=== PATIENT | female | born 1960 | race Caucasian/White ===

== ENCOUNTER 2016-05-13 08:18 | Inpatient (IN) | payer BC, OTHER ==
[2016-05-12 10:47] VITALS: BMI 25.0
[2016-05-13] VITALS (9 sets, daily range): BP systolic 97–130; BP diastolic 60–77; PULSE 63–75; TEMP 36.2–36.8; O2SAT 96–99; Ht 162.6 cm; Wt 68.2 kg
[~2016-05-13] VITALS: Ht 162.6 cm; Wt 68.2 kg
[~2016-05-13 08:18] MED LIST: CALC-393 PO; CEFAZOLIN 2000 MG/60 ML D5W IV SCH; CeleBREX 200 MG CAP PO ONE; LACTATED RINGER'S 1000ML IV SCH; MULT-506 PO; PREGABALIN 75 MG CAP PO ONE; SCOPOLAMINE 1.5 MG TDSY TD SCH
[2016-05-13] MEDS ORDERED: CeleBREX 200 MG CAP ONE (08:40)
[2016-05-13] MEDS ORDERED: PREGABALIN 75 MG CAP ONE (08:41)
[2016-05-13] MEDS ORDERED: FENTANYL CITRATE INJ 50 MCG/1 ML 2 ML VIAL ONE ×2 (09:44→12:34)
[2016-05-13] MEDS ORDERED: MIDAZOLAM HCL 1 MG/ML 2ML VIAL ONE (09:44)
[2016-05-13 09:50] LABS: PREG INTERNAL NEGATIVE QC NEG CLEAR BACKGROUND; PREG INTERNAL POSITIVE QC POS CONTROL LINE
--- NOTE | 2016-05-13 09:58 | History and Physical ---
History & Physical Date May 13, 2016. Chief Complaint LBP and R leg pain History of Present Illness The patient is a 55 year old female with complaints of above with radiation to anterior thigh. Pain is severe and debilitating despite oral narcotics. She has a hx of L2-5 PSF that was successful until a reherniation occurred 4-6 weeks ago. MRI demonstrates R L1-2 foraminal HNP. she reports weakness in hip on R and numbness. no left leg symptoms. Past Medical/Surgical History OA spinal fusion Additional History Hepatic Disease: No Endocrine Disorder: No Kidney Disease: No Hypertension: No Heart Disease: No Bleeding Tendencies: No Infectious Diseases: No Allergies Coded Allergies: No Known Allergies (Unverified , 05/13/16) Home Medications Scheduled Calcium Carbonate (Calcium), 600 MG PO QAM Multivitamin (Multivitamin), 1 TAB PO QAM Physical Examination Skin: warm/dry Eyes: normal inspection, sclerae normal ENT: normal ENT inspection Head: normocephalic, atraumatic Neck: supple, trachea midline Respiratory/Chest: lungs clear, no respiratory distress Cardiovascular: regular rate, rhythm Back: normal inspection (midline scar) Extremities: normal inspection, normal range of motion Neurologic/Psych: alert, normal reflexes, oriented x 3 Addiitonal Comments: weakness in hip flexors on right, numbness anterior thigh Diagnosis R L1-2 foraminal HNP adjacent to prior fusion Plan of Treatment L1-2 discectomy and extension of fusion to L1, possible T12, possible HWR L2-5.
[2016-05-13] MEDS ORDERED: HYDROmorphone INJ 2 MG/ML SYR/VIAL ONE (10:56)
[2016-05-13] MEDS ORDERED: PROMETHAZINE HCL INJ 6.25 MG in SODIUM CHLORIDE 0.9% 50ML 50 ML IV PRN (11:00)
[2016-05-13] MEDS ORDERED: HYDROmorphone INJ 1 MG/ML SYR IV PRN ×2 (11:00→12:30)
[2016-05-13] MEDS ORDERED: ATROPINE SULFATE 0.1 MG/ML 5ML SYR IV PRN (11:00)
[2016-05-13] MEDS ORDERED: FENTANYL CITRATE INJ 50 MCG/1 ML 2 ML VIAL IV PRN (11:00)
[2016-05-13] MEDS ORDERED: ONDANSETRON INJ 2 MG/ML 2 ML VIAL IV PRN ×2 (11:00→12:30)
[2016-05-13] MEDS ORDERED: EpHEDrine SULFATE INJ 50 MG/ML AMP IV PRN (11:00)
[2016-05-13] MEDS ORDERED: BUPIVACAINE/EPINEPHRINE 0.5% MPF 1:200,000 30 ML VIAL INJ ONE (11:09)
[2016-05-13] MEDS ORDERED: LIDOCAINE HCL 2% 2 ML VIAL (20MG/ML) ONE (11:18)
[2016-05-13] MEDS ORDERED: DEXAMETHASONE SOD INJ 4 MG/ML VIAL ONE (11:18)
[2016-05-13] MEDS ORDERED: NEOSTIGMINE METHYLSULFATE 5 MG/5 ML SYR ONE (11:18)
[2016-05-13] MEDS ORDERED: PROPOFOL IV EMULSION 10 MG/ML 20 ML VIAL IV ONE (11:18)
[2016-05-13] MEDS ORDERED: ROCURONIUM BROMIDE 10 MG/ML 5 ML VIAL ONE (11:18)
[2016-05-13] MEDS ORDERED: GLYCOPYRROLATE INJ 0.2 MG/ML VIAL ONE (11:18)
[2016-05-13] MEDS ORDERED: ONDANSETRON INJ 2 MG/ML 2 ML VIAL ONE (11:18)
[2016-05-13] MEDS ORDERED: THROMBIN FOR SOLN 20000 UNIT KIT TOP ONE (12:12)
[2016-05-13] MEDS ORDERED: FLOSEAL HEMOSTATIC MATRIX 10ML TOP ONE (12:12)
[2016-05-13] MEDS ORDERED: BACITRACIN 50000 UNIT VIAL IR ONE (12:12)
--- NOTE | 2016-05-13 12:16 | [facility] Post Operative Brief Note ---
Immediate Operative Summary Operative Date May 13, 2016. Pre-Operative Diagnosis Right L1-2 foraminal herniated nucleus pulposus adjacent to prior fusion Post-Operative Diagnosis Same as preoperative diagnosis Procedure(s) Performed L1-L2 Decompression and extension of instrumented Fusion; with use of infuse, bone marrow aspirate, and allograft Surgeon Dr. Vargas Commercial Relationship Manager Surgeon(s) [place] SALGADO Estimated Blood Loss 150 ml Findings dict Specimens None, as per surgeon
[2016-05-13] MEDS ORDERED: FAMOTIDINE 20 MG TAB PO PRN (12:30)
[2016-05-13] MEDS ORDERED: MAGNESIUM HYDROXIDE SUSP 30 ML UDC PO PRN (12:30)
[2016-05-13] MEDS ORDERED: ALUMINUM/MAGNESIUM SUSP 30 ML UDC PO PRN (12:30)
[2016-05-13] MEDS ORDERED: NALOXONE HCL 0.4 MG/1 ML VIAL/CARP IV PRN (12:30)
[2016-05-13] MEDS ORDERED: LORAZEPAM 0.5 MG TAB PO PRN (12:30)
[2016-05-13] MEDS ORDERED: PROMETHAZINE HCL INJ 12.5 MG in SODIUM CHLORIDE 0.9% 50ML 50 ML IV PRN (12:30)
[2016-05-13] MEDS ORDERED: METOCLOPRAMIDE HCL INJ 5 MG/ML 2 ML VIAL IV PRN (12:30)
[2016-05-13] MEDS ORDERED: LORAZEPAM INJ 0.5 MG in SYRINGE 0 ML IV PRN (12:30)
[2016-05-13] MEDS ORDERED: SOD PHOSPHATE/SOD BIPHOSPHATE ENEMA 132 ML BTL PR PRN (12:30)
[2016-05-13] MEDS ORDERED: hydrOXYzine HCL 25 MG TAB PO PRN (12:30)
[2016-05-13] MEDS ORDERED: BISACODYL 10 MG SUPP PR PRN (12:30)
[2016-05-13] MEDS ORDERED: ACETAMINOPHEN 500 MG TAB PO PRN (12:30)
--- NOTE | 2016-05-13 13:13 | Anesthesiology Progress Note ---
Anesthesia Post Op Note Date & Time May 13, 2016 at 13:13 Vital Signs Pain Intensity: 0 Vital Signs Past 12 Hours Date Time Temp Pulse Resp B/P Pulse Ox O2 Delivery O2 Flow Rate FiO2 05/13/16 13:05 36.7 58 16 131/65 96 Nasal Cannula 4 05/13/16 12:55 57 16 131/68 98 Nasal Cannula 4 05/13/16 12:45 59 16 119/64 98 Mask 10 05/13/16 12:36 65 16 120/69 99 Mask 10 05/13/16 12:26 36.8 71 16 144/76 97 Mask 10 05/13/16 08:59 36.2 65 18 130/77 96 Room Air Notes Mental Status: alert / awake / arousable, participated in evaluation Pt Amnestic to Procedure: Yes Nausea / Vomiting: adequately controlled Pain: adequately controlled Airway Patency, RR, SpO2: stable & adequate BP & HR: stable & adequate Hydration State: stable & adequate Anesthetic Complications: no major complications apparent
--- NOTE | 2016-05-13 13:21 | OPERATIVE REPORT ---
DATE OF OPERATION: 05/13/2016 PREOPERATIVE DIAGNOSES: 1. Right L1-2 foraminal disc herniation. 2. Previous L2-L5 instrumented fusion. 3. L1-2 facet arthrosis. POSTOPERATIVE DIAGNOSES: Same. PROCEDURES: 1. L1 laminectomy with right L1-L2 facetectomy. 2. Nonsegmental pedicle screw instrumentation -- bilateral L1 with K2M [place] pedicle screws. 3. Posterolateral fusion L1-2 -- bilateral with Infuse BMP on a collagen sponge, tricalcium phosphate, local bone, bone putty, bone marrow aspirate. 4. Right iliac crest bone marrow aspiration, stem cell concentration with Arteriocyte. SURGEON: Dr. Vargas. OIL ANALYST: Neil Cole PA-C. Please note he participated in all portions of the procedure and was critical for performance of procedure, participated in positioning, prepping, draping, retraction and wound closure. ANESTHESIA: General endotracheal anesthesia. COMPLICATIONS: None. ESTIMATED BLOOD LOSS: 100 mL. IV FLUIDS: Per anesthesia record. PROCEDURE IN DETAIL: After identification of patient and operative level, she was brought to the OR where she underwent induction of general anesthesia. She was then positioned prone on Jimmy OR table. All bony prominences were well padded. Care was taken to avoid pressure on the periorbital area. Lumbosacral area was sterilely prepped and draped in usual fashion. Antibiotics were administered. Time-out was performed. Level was confirmed and skin incision was made from spinous process of T12 to the L3 pedicle screws. I exposed the posterior elements, placed Gelpi retractors, confirmed level, identified the previous hardware and explored the fusion mass for solid fusion at L2-3, given the extent of exposure. I then proceeded to perform an L1 laminectomy with right L1-L2 facetectomy and a right L1-L2 discectomy. After removal of disc fragments, the nerve root was decompressed, could pass the probe through the neural foramen and along the L1 nerve root. The nerve root was red and swollen. I then applied FloSeal for hemostasis, placed pedicle screws bilaterally in L1 with K2M [place] pedicle screws. I used a 4.5 mm screw on the left, 5.5 mm screw on the right. I then exposed the rods at L2-3 and used connectors to attach murali-to-murali connector from the L1 screw to the L2-3 murali. I then placed endcaps, final tightened all connections, placed cross link, final tightened this, and irrigated with bacitracin solution. I aspirated bone marrow aspirate from a separate stab incision with a Jamshidi needle and concentrated with Arteriocyte, applied bone graft and decorticated the transverse process of L1 and the fusion mass at L2. I then packed the lateral gutters with bone graft mixture, confirmed hemostasis and closed in layered fashion over SAKINA drain. I attest to the content of the Intraoperative Record and any orders documented therein. Any exceptio ns are noted below.
[2016-05-13] MEDS: LACTATED RINGER'S 1000ML 1,000 ML IV SCH (14:05)
--- NOTE | 2016-05-13 14:23 | DIAGNOSTIC IMAGING REPORT ---
INTRAOPERATIVE RADIOGRAPHS CLINICAL HISTORY: L1-L5 spinal fusion. Fluoroscopy time: 7 seconds. FINDINGS: 2 spot fluoroscopic views of the lumbar spine are presented. There are changes from laminectomy and posterior fusion from L1 to L5. There is evidence of discectomy at L3-L4. Interpedicular screws are present at all levels. The orthopedic hardware appears intact. IMPRESSION: Intraoperative images from L1 to L5 spinal fusion as above. Electronically signed by: Sunday Carpenter M.D. 05/13/2016 2:21 PM Dictated Date/Time: 05/13/2016 2:20 PM
[2016-05-13] MEDS: CHECK SCOPOLAMINE PATCH PLACEMENT SCH (15:17)
[2016-05-13] MEDS: CEFAZOLIN IV 1,000 MG in DEXTROSE 5% 50ML 50 ML IV SCH (17:43)
[2016-05-13] MEDS: DEXAMETHASONE INJ 6 MG in SYRINGE 0 ML IV SCH (20:05)
[2016-05-13] MEDS: DOCUSATE SODIUM/SENNA 50/8.6MG TAB PO SCH (21:14)
[2016-05-13] MEDS: OXYCODONE HCL IR 5 MG TAB (IMMEDIATE RELEASE) PO PRN (21:17)
[2016-05-14] MEDS: CHECK SCOPOLAMINE PATCH PLACEMENT SCH ×3 (00:13→12:15)
[2016-05-14] MEDS: OXYCODONE HCL IR 5 MG TAB (IMMEDIATE RELEASE) PO PRN ×4 (03:01→21:06)
[2016-05-14] MEDS: LACTATED RINGER'S 1000ML 1,000 ML IV SCH (03:01)
[2016-05-14] MEDS: CEFAZOLIN IV 1,000 MG in DEXTROSE 5% 50ML 50 ML IV SCH (03:01)
[2016-05-14] MEDS: DEXAMETHASONE INJ 6 MG in SYRINGE 0 ML IV SCH ×2 (03:02→12:15)
[2016-05-14 03:03] VITALS: BP 104/62; PULSE 73; TEMP 36.7; O2SAT 97
[2016-05-14 05:49] LABS: COMPLETE YES; HEMATOCRIT 37.2 % (37-47); IG% 0.2 %; LYMPH % 3.8 %; LYMPH ABS # 0.54 K/uL (1.2-3.4); MEAN CELL VOLUME 87.7 fL (80-100); MEAN CORPUSCULAR HEMOGLOBIN 30.7 pg (25-34); MEAN CORPUSCULAR HGB CONC 34.9 g/dl (32-36); MONO % 2.5 %; NEUT % 93.5 %; PLATELET COUNT 228 K/uL (130-400); RED BLOOD COUNT 4.24 M/uL (4.2-5.4); WHITE BLOOD COUNT 14.24 K/uL (4.8-10.8)
[2016-05-14] MEDS ORDERED: OXYCODONE HCL IR 5 MG TAB (IMMEDIATE RELEASE) PO PRN (06:00)
[2016-05-14] MEDS ORDERED: NURSING VERBAL MED ORDER ONE ×2 (06:00→14:45)
[2016-05-14] MEDS ORDERED: CeleBREX 200 MG CAP PO ONE (06:00)
[2016-05-14 06:17] LABS: BUN/CREATININE RATIO 20.7 (10-20); CALCIUM 8.8 mg/dl (8.5-10.1); CREATININE 0.89 mg/dl (0.60-1.20); POTASSIUM 4.4 mmol/L (3.5-5.1)
[2016-05-14 07:33] VITALS: BP 103/67; PULSE 64; TEMP 36.7; O2SAT 96
--- NOTE | 2016-05-14 07:47 | Anesthesiology Progress Note ---
Anesthesia Post Op Note Date & Time May 14, 2016 at 07:46 Vital Signs Pain Intensity: 5.0 Vital Signs Past 12 Hours Date Time Temp Pulse Resp B/P Pulse Ox O2 Delivery O2 Flow Rate FiO2 05/14/16 07:33 36.7 64 19 103/67 96 Room Air 05/14/16 03:03 36.7 73 16 104/62 97 Room Air 05/13/16 23:30 Room Air 05/13/16 23:17 36.6 74 16 109/68 97 Room Air Notes Mental Status: alert / awake / arousable, participated in evaluation Pt Amnestic to Procedure: Yes Nausea / Vomiting: adequately controlled Pain: adequately controlled Airway Patency, RR, SpO2: stable & adequate BP & HR: stable & adequate Hydration State: stable & adequate Anesthetic Complications: no major complications apparent
--- NOTE | 2016-05-14 12:21 | Orthopedic Progress Note ---
Orthopedic Progress Note Date of Service May 14, 2016. Subjective Post OP Day: 1 Reports: feeling well, pain controlled w PO medications, Denies: SOB, calf pain , chest pain, complaints, light headedness, nausea / vomiting, using PANEL RAISER OPERATOR Objective calves soft nontender, N/V intact, dressing C/D/I, A&O x3, hemovac drainage Date Time Temp Pulse Resp B/P Pulse Ox O2 Delivery O2 Flow Rate FiO2 05/14/16 07:33 36.7 64 19 103/67 96 Room Air 05/14/16 03:03 36.7 73 16 104/62 97 Room Air 05/13/16 23:30 Room Air 05/13/16 23:17 36.6 74 16 109/68 97 Room Air 05/13/16 19:15 36.7 72 16 109/68 97 Room Air 05/13/16 17:39 98 Room Air 05/13/16 16:25 36.7 75 16 119/70 99 Nasal Cannula 4.0 05/13/16 16:12 98 Nasal Cannula 4.0 05/13/16 15:30 36.6 65 16 97/60 98 Nasal Cannula 4.0 05/13/16 14:01 66 16 120/71 96 4.0 05/13/16 13:30 36.8 63 16 113/65 96 Nasal Cannula 4.0 05/13/16 13:30 Nasal Cannula 4.0 05/13/16 13:30 36.8 63 16 113/65 96 4.0 05/13/16 13:30 Nasal Cannula 4.0 05/13/16 13:15 61 13 125/64 97 Nasal Cannula 4 05/13/16 13:05 36.7 58 16 131/65 96 Nasal Cannula 4 05/13/16 12:55 57 16 131/68 98 Nasal Cannula 4 05/13/16 12:45 59 16 119/64 98 Mask 10 05/13/16 12:36 65 16 120/69 99 Mask 10 05/13/16 12:26 36.8 71 16 144/76 97 Mask 10 Laboratory Results 24 Hours: Test 05/14/16 05:10 White Blood Count 14.24 K/uL Red Blood Count 4.24 M/uL Hemoglobin 13.0 g/dL Hematocrit 37.2 % Mean Corpuscular Volume 87.7 fL Mean Corpuscular Hemoglobin 30.7 pg Mean Corpuscular Hemoglobin Concent 34.9 g/dl Platelet Count 228 K/uL Mean Platelet Volume 10.0 fL Neutrophils (%) (Auto) 93.5 % Lymphocytes (%) (Auto) 3.8 % Monocytes (%) (Auto) 2.5 % Eosinophils (%) (Auto) 0.0 % Basophils (%) (Auto) 0.0 % Neutrophils # (Auto) 13.32 K/uL Lymphocytes # (Auto) 0.54 K/uL Monocytes # (Auto) 0.35 K/uL Eosinophils # (Auto) 0.00 K/uL Basophils # (Auto) 0.00 K/uL Assessment & Plan Assessment: preop pain gone, doing well. start PT, home fri Discharge Planning Discharge Planning: home Pain Management: Oxy IR DVT Prophylaxis: SCDs
[2016-05-14 15:02] VITALS: BP 130/60; PULSE 60; TEMP 36.6; O2SAT 100
[2016-05-14] MEDS: DOCUSATE SODIUM/SENNA 50/8.6MG TAB PO SCH (21:22)
[2016-05-14 23:40] VITALS: BP 117/69; PULSE 72; TEMP 36.5; O2SAT 96
[2016-05-15] MEDS: POLYETHYLENE (MIRALAX) 17 GM PACK PO SCH ×2 (06:00→12:00)
[2016-05-15] MEDS: OXYCODONE HCL IR 5 MG TAB (IMMEDIATE RELEASE) PO PRN ×2 (07:26→12:41)
[2016-05-15 07:50] VITALS: BP 116/74; PULSE 66; TEMP 36.5; O2SAT 100
[2016-05-15 07:59] VITALS: O2SAT 100
[2016-05-15] MEDS ORDERED: OXYC-57 PO (09:40)
--- NOTE | 2016-05-15 09:43 | Discharge Instructions ---
Discharge Instructions Admission Reason for Admission: Lumbar Spinal Stenosis Discharge Discharge Diagnosis / Problem: hnp Discharge Goals Goal(s): Decrease discomfort Activity Recommendations Activity Limitations: per Instructions/Follow-up section . Instructions / Follow-Up Instructions / Follow-Up ACTIVITY RECOMMENDATIONS: SELF CARE INSTRUCTIONS AFTER THORACIC/LUMBAR FUSIONS 1. You may walk to your tolerance. It is good exercise for your legs and back. Expect some back and intermittent leg aches and pains. 2. You may perform "counter-top" level activities (make a sandwich, mary grace with a project, etc.). 3. No bending or lifting of more than 10 pounds or back twisting of any nature (roll like a log when turning in bed). 4. You may ride in a car for 20-30 minutes at a time. No driving until after your first visit with your doctor. 5. Frequent changes of position and restricting sitting to 30 minutes at a time will help limit the amount of back spasms and stiffness you may experience. 6. You may discontinue the use of ambulatory aids (cane, crutches, etc.) once your strength and confidence allow. 7. You may damage prevention coordinator the shower and let water strike your incision when you arrive home at least once daily. Do not take a tub bath, sit in a hot tub or go into a swimming pool until after your first recheck in the office. SPECIAL CARE INSTRUCTIONS: VERY IMPORTANT TO READ AND REVIEW A. Your surgical incision has been closed with a cosmetic suture under the skin that will dissolve in about 6 weeks. In 14 days, you can use a pair of clean scissors and cut the suture that is left outside of the skin at the ends of your incision. 1. The small skin tapes can be removed 7 days after surgery if they have not fallen off by that point. 2. You may keep the wound open to air as much as possible to promote healing after post-op day number 5 unless told otherwise by your doctor. 3. If you think the wound looks like it is becoming infected (redness or worsening drainage) and/or you are experiencing fever, chill or worsening back pain and muscle spasms, contact the office so that we may evaluate you as soon as possible. B. Complications are uncommon, but please contact us if you have any signs or symptoms of: 1. wound infection (fever higher than 102.5 degrees F, redness, separation of wound, drainage, or increasing pain from the incision) 2. blood clots in legs (pain, swelling, redness and warmth in legs) 3. urinary tract infection (fever higher than 102.5 degrees F, burning upon urination or increased frequency of urination) 4. nerve problems (inability to walk on your toes or heels, numbness, loss of bowel or bladder control) 5. any other symptoms that concern you C. Please call the office at if you have any concerns or questions about your operation or recovery. D. No smoking! Smoking drastically decreases the chance of a solid fusion. E. Do not take any anti-inflammatory medications (Indocin, Advil, Motrin, Aspirin, Naprosyn, etc.) as these may inhibit the chance of a solid fusion. Tylenol is okay to take for pain. MANAGING PAIN AFTER SPINAL SURGERY 1. Narcotic medication is intended for short-term use and will be provided for surgical pain. Surgical pain usually lasts for a period of 4-6 weeks. Narcotic medication includes Percocet, Vicodin, Darvocet, Tylenol #3 or Lortab. 2. Longer-term pain is more appropriately treated with non-narcotic medication such as Tylenol ES. 3. Muscle spasm is not appropriately treated with narcotics. Muscle relaxers such as Soma, Flexeril or Skelaxin can be used along with Tylenol ES. 4. Remember that we all live with some "aches and pains". This is not unusual or uncommon after an injury or as we get older. a. Back pain is expected and may include muscle spasms for 4 to 6 weeks after surgery. The pain should gradually improve. If the pain worsens for no apparent reason, please contact the office. b. Intermittent leg pain may also be experienced and should not be concerned about unless it worsens for no apparent reason. If so, please contact the office. 5. We will provide appropriate medication within the normal guidelines of their prescribed use. We will also be very cautious and aware of potential abuse and extended duration of patients' medication needs. a. Pain medications are for your comfort and to assist with sleep and rest so that the tissue can heal. They are not provided in order to return to normal activity and should not be used through the day. To do so or worsening pain at night can result from ongoing tissue damage and development of tolerance to the prescribed medicine. 6. Please allow 2-3 days to process refills. Prescriptions will not be mailed but must be picked up at the office. FOLLOW UP VISIT: Keep your scheduled follow-up appointment. Any questions, please call the office at . Current Hospital Diet Patient's current hospital diet: Regular Diet Discharge Diet Recommended Diet: Regular Diet Procedures Procedures Performed: L1-L2 Decompression and extension of instrumented Fusion; with use of infuse, bone marrow aspirate, and allograft Pending Studies Studies pending at discharge: no Medical Emergencies . Who to Call and When: Medical Emergencies: If at any time you feel your situation is an emergency, please call 911 immediately. . Non-Emergent Contact Non-Emergency issues call your: Surgeon Past History Medical & Surgical History: (1) Lumbar stenosis with neurogenic claudication (2) HNP (herniated nucleus pulposus) . "Provider Documentation" section prepared by Landon Vargas. VTE Core Measure Inpt VTE Proph given/why not?: Natalie Lynch, SCD's
[2016-05-15 12:29] VITALS: BP 116/74; PULSE 66; TEMP 36.5; O2SAT 100
--- NOTE | 2016-05-26 10:13 | DISCHARGE SUMMARY ---
PRINCIPAL DIAGNOSIS: Includes right L1-2 disc herniation, prior L2-5 instrumented fusion, L1-2 facet arthrosis. POSTOPERATIVE DIAGNOSIS: Same. PROCEDURE: Decompression of L1-2 with posterolateral fusion L1-2. SURGEON: Dr. Landon Vargas. CORPORATE COUNSEL: Neil Cole PA-C. HISTORY OF PRESENT ILLNESS: Please refer to EMR. HOSPITAL COURSE: On the above date Ms. Cobian was admitted to [facility] with the reported diagnosis. She was taken to preoperative holding where she was identified, evaluated and cleared for surgical procedure. She was identified by Dr. Landon Vargas who again reviewed the procedure in detail. She was transported to the operating room, introduced with general anesthesia, sterile conditions were set and she successfully underwent the above procedure without complication or issue. She was awakened in stable and satisfactory condition and transported to postoperative recovery where her vital signs and pain were monitored and managed. She remained medically stable and was transported to the orthopedic floor for continued postoperative care. Throughout her stay, her vital signs, pain and labs were monitored routinely and adjusted through physician direction. She participated in physical therapy with good noted progress. DVT and GI prophylactic measures were taken. There were no issues or complications noted. On the date of 05/15/2016, after provider evaluation, she was indicated for return home. On this date, she was discharged from [facility]. DISPOSITION: Home. DISPOSITION CONDITION: Stable. NOTED COMPLICATIONS OR ISSUES: Zero. DISCHARGE INSTRUCTIONS: Please refer to EMR.
== END 2016-05-15 13:00 | disposition home or self-care (01) | DRG 460 ==
LOC: ENRESERVTM → ENRESERVDT → C.ACU 08:18 → C.3E 12:18
PROVIDERS: ADMIT Orthopaedic Surgery Orthopaedic Surgery of the Spine; ATTEND Orthopaedic Surgery Orthopaedic Surgery of the Spine
PROC: 07DR3ZZ Extraction of Iliac Bone Marrow, Percutaneous Approach (ICD-10-PCS; principal; 2016-05-13 11:00)
PROC: 0SG0071 Fusion of Lumbar Vertebral Joint with Autologous Tissue Substitute, Posterior Approach, Posterior Column, Open Approach (ICD-10-PCS; principal; 2016-05-13 11:00)
PROC: 3E0V0GB Introduction of Recombinant Bone Morphogenetic Protein into Bones, Open Approach (ICD-10-PCS; principal; 2016-05-13 11:00)
DX: M51.26 Other intervertebral disc displacement, lumbar region (principal); Z98.1 Arthrodesis status